=== PATIENT | male | born 1950 | race Caucasian/White ===

== ENCOUNTER 2020-04-15 13:45 | Day surgery (SDC) | payer MEDICARE ==
[~2020-04-15 13:45] MED LIST: DIPRIVAN 200 MG/20 ML IV ONE; Ketamine HCl 50 MG/ML ONE
[2020-04-15] MEDS ORDERED: Depo-Medrol 40 MG/ML IM ONE (13:46)
[2020-04-15] MEDS ORDERED: Sodium Chloride 0.9(Preservative Free) 10 ML IJ ONE (13:46)
[2020-04-15] MEDS ORDERED: Lactated Ringers 1,000 ML IV ONE (15:52)
--- NOTE | 2020-04-15 16:19 | XRAY ---
Indication: Right L3-L5 transforaminal HENRRY. Intraoperative fluoroscopy was provided for 29 seconds. 3 digital spot images submitted for interpretation demonstrates posterior needle tips projecting over the expected right L3 and L4 nerve roots. Small amount of contrast injected for needle tip placement. Correlate with intraoperative findings/report.
--- NOTE | 2020-04-15 16:29 | XRAY ---
29 seconds fluoroscopy time in surgery for right L3-L5 transforaminal HENRRY.
== END 2020-04-15 15:40 | disposition home or self-care (01) ==
LOC: SDC-PAIN 13:45
PROVIDERS: ATTEND Psychiatry & Neurology Pain Medicine
DX: M54.16 Radiculopathy, lumbar region (principal); I10 Essential (primary) hypertension; I71.4 Abdominal aortic aneurysm, without rupture; Z79.899 Other long term (current) drug therapy
CPT/HCPCS: 72100; 77003; J1030; J2704

== ENCOUNTER 2021-11-25 15:35 | Observation (INO) | payer MEDICARE ==
--- NOTE | 2021-11-25 15:52 | ERPHSYRPT ---
- History of Present Illness Time Seen by Provider: 11/25/21 15:52 Source: patient, family Exam Limitations: no limitations Physician History: This is a 71-year-old white male patient who is being treated with chemotherapy and radiation therapy for tx of static lung cancer and presents with weakness for the last 3 to 4 days. He has had associated decreased appetite and decreased oral intake. He is also complains of nausea and dry, itchy skin. We also notes to have a left foot fifth digit skin lesion. Patient denies chest pain. He denies shortness of breath. He has no abdominal pain. Timing/Duration: day(s) (3), worse Severity: moderate Associated Symptoms: nausea, weakness, No shortness of breath, No chest pain Allergies/Adverse Reactions: No Known Drug Allergies Allergy (Unverified 11/25/21 16:15) Travel Risk - International Travel Have you traveled outside of the country in past 3 weeks: No - Coronavirus Screening Are you exhibiting any of the following symptoms?: No Close contact with a COVID-19 positive Pt in past 14-21 Days: No - Review of Systems Constitutional: Weakness Eyes: No Symptoms Ears, Nose, & Throat: No Symptoms Respiratory: No Symptoms Cardiac: No Symptoms Abdominal/Gastrointestinal: Nausea, Appetite Changes Genitourinary Symptoms: No Symptoms Musculoskeletal: No Symptoms Skin: Pruritis, Dryness Neurological: No Symptoms Psychological: No Symptoms Endocrine: No Symptoms Hematologic/Lymphatic: No Symptoms Immunological/Allergic: No Symptoms All Other Systems: Reviewed and Negative - Past Medical History Pertinent Past Medical History: Yes - Past Surgical History Past Surgical History: Yes - Nursing Vital Signs Nursing Vital Signs: Initial Vital Signs Temperature 97.9 F 11/25/21 15:49 Pulse Rate 108 H 11/25/21 15:49 Respiratory Rate 18 11/25/21 15:49 Blood Pressure 93/67 11/25/21 15:49 O2 Sat by Pulse Oximetry 98 11/25/21 15:49 Pain Scale Pain Intensity 5 - Physical Exam General Appearance: mild distress, alert, anxiety, thin Eye Exam: PERRL/EOMI, eyes nml inspection Ears, Nose, Throat Exam: normal ENT inspection, moist mucous membranes Neck Exam: normal inspection, non-tender, supple, full range of motion Respiratory Exam: normal breath sounds, lungs clear, airway intact, No chest tenderness, No respiratory distress Cardiovascular Exam: tachycardia Gastrointestinal/Abdomen Exam: soft, normal bowel sounds, hernia (Umbilical, reducible), No tenderness Rectal Exam: not done Back Exam: normal inspection, normal range of motion, No CVA tenderness, No vertebral tenderness Extremity Exam: normal range of motion, pelvis stable, tenderness (Eschar left foot lateral fifth digit) Neurologic Exam: alert, oriented x 3, cooperative, mushroom cutter II-XII nml as tested, sensation nml Skin Exam: normal color, warm, dry Lymphatic Exam: No adenopathy SpO2 Interpretation: normal O2 Delivery: Room Air - Course Nursing assessment & vital signs reviewed: Yes EKG Interpreted by Me: RATE ([id number]), Sinus Tach, NORMAL AXIS, NORMAL INTERVALS, NORMAL QRS, NORMAL ST-T, Other (No acute ischemic changes.) Ordered Tests: Active Orders 24 hr Category Date Time Status Grid Maker STAT Care 11/25/21 16:09 Active EKG-ER Only STAT Care 11/25/21 16:09 Active IV Insertion STAT Care 11/25/21 16:09 Active Pulse Oximetry (ED) STAT Care 11/25/21 16:09 Active CBC W DIFF Stat Lab 11/25/21 16:30 Completed CMP Stat Lab 11/25/21 16:30 Completed CULTURE,URINE Stat Lab 11/25/21 19:00 Received CULTURE,WOUND Stat Lab 11/25/21 19:59 Received Lactic Acid Stat Lab 11/25/21 17:00 Completed MAGNESIUM Stat Lab 11/25/21 16:30 Completed NT PRO BNP Stat Lab 11/25/21 16:30 Completed TROPONIN Q3H Lab 11/25/21 16:30 Completed TROPONIN Q3H Lab 11/25/21 19:15 Completed TROPONIN Q3H Lab 11/25/21 22:15 Ordered TROPONIN Q3H Lab 11/26/21 01:15 Ordered TROPONIN Q3H Lab 11/26/21 04:15 Ordered UA W/RFX CULTURE Stat Lab 11/25/21 19:00 Completed Transfer Order Routine Transfer 11/25/21 Ordered Medication Summary Generic Name Dose Route Start Last Admin Trade Name Freq PRN Reason Stop Dose Admin Sodium Chloride 1,000 mls @ 250 mls/hr 11/25/21 20:15 Sodium Chloride 0.9% 1000 Ml IV 12/25/21 20:14 .Q4H [place] Discontinued Medications Generic Name Dose Route Start Last Admin Trade Name Freq PRN Reason Stop Dose Admin Amitriptyline HCl 25 mg 11/25/21 18:39 11/25/21 19:08 Amitriptyline Hcl 25 Mg Tablet PO 11/25/21 18:40 25 mg STAT ONE Administration Methylprednisolone Sodium 0 mg 11/25/21 18:38 11/25/21 19:10 Succinate 125 mg/ Sterile IV 11/25/21 18:39 125 mg Water 2 ml STAT ONE Administration Sodium Chloride 1,000 mls @ 999 mls/hr 11/25/21 16:09 11/25/21 18:15 Sodium Chloride 0.9% 1000 Ml IV 11/25/21 17:09 Infused .Q1H1M STA Infusion Sodium Chloride Confirm 11/25/21 16:22 Sodium Chloride 0.9% 1000 Ml Administered 11/25/21 16:23 Dose 1,000 mls @ ud .ROUTE .STK-MED ONE Sodium Chloride 1,000 mls @ 999 mls/hr 11/25/21 18:21 11/25/21 19:59 Sodium Chloride 0.9% 1000 Ml IV 11/25/21 19:21 Infused .Q1H1M STA Infusion Sodium Chloride Confirm 11/25/21 18:27 Sodium Chloride 0.9% 1000 Ml Administered 11/25/21 18:28 Dose 1,000 mls @ ud .ROUTE .STK-MED ONE Ceftriaxone Sodium/Dextrose 1 g in 50 mls @ 100 mls/hr 11/25/21 20:17 11/25/21 20:37 Rocephin 1 Gm-D5w 50 Ml Bag IV 11/25/21 20:46 100 ml/hr STAT STA 100 mls/hr Administration Ceftriaxone Sodium/Dextrose Confirm 11/25/21 20:36 Rocephin 1 Gm-D5w 50 Ml Bag Administered 11/25/21 20:37 Dose 1 g in 50 mls @ ud IV .STK-MED ONE Methylprednisolone Sodium Succinate Confirm 11/25/21 18:46 Methylprednis Sod Succ 125 Mg/2 Ml Vial Administered 11/25/21 18:47 Dose 125 mg .ROUTE .STK-MED ONE Sterile Water Confirm 11/25/21 18:46 Water For Injection,Sterile 10 Ml Vial Administered 11/25/21 18:47 Dose 10 ml IJ .STK-MED ONE Lab/Rad Data: Laboratory Result Diagrams 11/25/21 16:30 11/25/21 16:30 Laboratory Results 11/25/21 11/25/21 11/25/21 Range/Units 19:15 19:00 17:00 WBC (4.0-10.5) K/mm3 RBC (4.1-5.6) M/mm3 Hgb (12.5-18.0) gm/dl Hct (42-50) % MCV (78-100) fl MCH (26-32) pg MCHC (32-36) g/dl RDW (11.5-14.0) % Plt Count (150-450) K/mm3 MPV (7.5-11.0) fl Gran % (36.0-66.0) % Eos # (Auto) (0-0.5) Absolute Lymphs (auto) (1.0-4.6) Absolute Monos (auto) (0.0-1.3) Lymphocytes % (24.0-44.0) % Monocytes % (0.0-12.0) % Eosinophils % (0.00-5.0) % Basophils % (0.0-0.4) % Absolute Granulocytes (1.4-6.9) Basophils # (0-0.4) Sodium (137-145) mmol/L Potassium (3.5-5.1) mmol/L Chloride (98-107) mmol/L Carbon Dioxide (22-30) mmol/L Anion Gap (5-15) MEQ/L BUN (9-20) mg/dL Creatinine (0.66-1.25) mg/dL Estimated GFR ML/MIN Glucose (74-106) mg/dL Lactic Acid 1.3 (0.4-2.0) Calcium (8.4-10.2) mg/dL Magnesium (1.6-2.3) mg/dL Total Bilirubin (0.2-1.3) mg/dL AST (17-59) U/L ALT (0-50) U/L Alkaline Phosphatase (38-126) U/L Troponin I 0.033 (0.000-0.034) ng/mL NT-Pro-B Natriuret Pep (0-900) pg/mL Serum Total Protein (6.3-8.2) g/dL Albumin (3.5-5.0) g/dL Urinalys Dipstick Clnc MAIN LAB Urine Color RED (YELLOW) Urine Appearance TURBID (CLEAR) Urine pH 8.5 (5-6) Ur Specific [place] 1.010 (1.005-1.025) POC Urine Protein Conf >=300 (Negative) Urine Ketones MODERATE-40 (NEGATIVE) Urine Nitrite NEGATIVE (NEGATIVE) Urine Bilirubin LARGE (NEGATIVE) Urine Urobilinogen 4 (0-1) mg/dL Urine Leukocytes LARGE (NEGATIVE) Urine WBC (Auto) 16-25 (0-5) /HPF Urine RBC (Auto) >101 (0-2) /HPF Urine Bacteria (Auto) FEW (NEGATIVE) /HPF Urine RBC LARGE (0-5) Lester/ul Urine Mucus (Auto) SLIGHT (NEGATIVE) /HPF Ur Culture Indicated? YES Urine Glucose 100 (NEGATIVE) mg/dL 11/25/21 11/25/21 11/25/21 Range/Units 16:30 16:30 16:30 WBC 8.9 (4.0-10.5) K/mm3 RBC 4.57 (4.1-5.6) M/mm3 Hgb 10.6 L (12.5-18.0) gm/dl Hct 32.9 L (42-50) % MCV 72.0 L (78-100) fl MCH 23.2 L (26-32) pg MCHC 32.2 (32-36) g/dl RDW 19.1 H (11.5-14.0) % Plt Count 353 (150-450) K/mm3 MPV 10.0 (7.5-11.0) fl Gran % 74.3 H (36.0-66.0) % Eos # (Auto) 0.18 (0-0.5) Absolute Lymphs (auto) 1.13 (1.0-4.6) Absolute Monos (auto) 0.96 (0.0-1.3) Lymphocytes % 12.7 L (24.0-44.0) % Monocytes % 10.8 (0.0-12.0) % Eosinophils % 2.0 (0.00-5.0) % Basophils % 0.2 (0.0-0.4) % Absolute Granulocytes 6.62 (1.4-6.9) Basophils # 0.02 (0-0.4) Sodium 134 L (137-145) mmol/L Potassium 4.6 (3.5-5.1) mmol/L Chloride 104 (98-107) mmol/L Carbon Dioxide 22 (22-30) mmol/L Anion Gap 13.2 (5-15) MEQ/L BUN 15 (9-20) mg/dL Creatinine 0.79 (0.66-1.25) mg/dL Estimated GFR > 60.0 ML/MIN Glucose 93 (74-106) mg/dL Lactic Acid (0.4-2.0) Calcium 9.0 (8.4-10.2) mg/dL Magnesium 2.1 (1.6-2.3) mg/dL Total Bilirubin 0.70 (0.2-1.3) mg/dL AST 15 L (17-59) U/L ALT 5 (0-50) U/L Alkaline Phosphatase 102 (38-126) U/L Troponin I 0.035 H (0.000-0.034) ng/mL NT-Pro-B Natriuret Pep 429 (0-900) pg/mL Serum Total Protein 7.0 (6.3-8.2) g/dL Albumin 3.4 L (3.5-5.0) g/dL Urinalys Dipstick Clnc Urine Color (YELLOW) Urine Appearance (CLEAR) Urine pH (5-6) Ur Specific [place] (1.005-1.025) POC Urine Protein Conf (Negative) Urine Ketones (NEGATIVE) Urine Nitrite (NEGATIVE) Urine Bilirubin (NEGATIVE) Urine Urobilinogen (0-1) mg/dL Urine Leukocytes (NEGATIVE) Urine WBC (Auto) (0-5) /HPF Urine RBC (Auto) (0-2) /HPF Urine Bacteria (Auto) (NEGATIVE) /HPF Urine RBC (0-5) Lester/ul Urine Mucus (Auto) (NEGATIVE) /HPF Ur Culture Indicated? Urine Glucose (NEGATIVE) mg/dL - Progress Progress: improved, re-examined Progress Note: 11/25/21 20:51 Medical decision making: I spoke with Dr. Pabon and we will bring the patient in to the hospital under observation status to help reverse his dehydration and we will place him on intravenous antibiotics for urinary tract infection. We will repeat his labs in the morning Discussed with : Dhara Counseled pt/family regarding: lab results, diagnosis, need for follow-up, rad results - Departure Departure Disposition: Observation Clinical Impression: Dehydration, Hematuria, UTI (urinary tract infection), Weakness Condition: Fair Critical Care Time: No Referrals: BONNIE KIRKPATRICK [Primary Care Provider] - Follow up/PCP as directed
[2021-11-25] MEDS ORDERED: Sodium Chloride 0.9% 1000 ML 1,000 ML IV STA ×2 (16:09→18:21)
[2021-11-25] MEDS ORDERED: Sodium Chloride 0.9% 1000 ML 1,000 ML ONE ×3 (16:22→21:45)
[2021-11-25 16:47] LABS: Absolute Neutrophil Ct (ANC) 6.62 (1.4-6.9); Basophil (Absolute #) 0.02 (0-0.4); Eosinophil (Absolute #) 0.18 (0-0.5); Hematocrit 32.9 % (42-50); Hemoglobin 10.6 gm/dl (12.5-18.0); Lymphocyte (Absolute #) 1.13 (1.0-4.6); Lymphocytes % 12.7 % (24.0-44.0); Mean Corpuscular Hemoglobin 23.2 pg (26-32); Mean Corpuscular Hgb Concent. 32.2 g/dl (32-36); Monocyte (Absolute #) 0.96 (0.0-1.3); Monocytes % 10.8 % (0.0-12.0); Neutrophil % 74.3 % (36.0-66.0); Platelet Count 353 K/mm3 (150-450); Red Blood Count 4.57 M/mm3 (4.1-5.6); Red Cell Distribution Width 19.1 % (11.5-14.0); White Blood Count 8.9 K/mm3 (4.0-10.5)
[2021-11-25 17:00] LABS: ALBUMIN 3.4 g/dL (3.5-5.0); ALKALINE PHOSPHATASE 102 U/L (38-126); ANION GAP 13.2 MEQ/L (5-15); BLOOD UREA NITROGEN 15 mg/dL (9-20); CHLORIDE 104 mmol/L (98-107); Carbon Dioxide 22 mmol/L (22-30); Creatinine 1 0.79 mg/dL (0.66-1.25); EST GLOMERULAR FILTRATION RATE > 60.0 ML/MIN; Glucose 93 mg/dL (74-106); MAGNESIUM 2.1 mg/dL (1.6-2.3); NT PRO BNP 429 pg/mL (0-900); Potassium 4.6 mmol/L (3.5-5.1); SGOT/AST 15 U/L (17-59); SGPT/ALT 5 U/L (0-50); SODIUM 134 mmol/L (137-145)
[2021-11-25] MEDS ORDERED: solu-MEDROL 125 MG, Sterile H2O 10 ml 2 ML IV ONE ×2 (18:38)
[2021-11-25] MEDS ORDERED: AMITRIPTYLINE 25 MG TABLET PO ONE (18:39)
[2021-11-25] MEDS ORDERED: Sterile H2O 10 ml IJ ONE (18:46)
[2021-11-25] MEDS ORDERED: solu-MEDROL ONE (18:46)
[2021-11-25 20:15] LABS: Bacteria FEW /HPF (NEGATIVE); Mucus SLIGHT /HPF (NEGATIVE)
[2021-11-25] MEDS ORDERED: Sodium Chloride 0.9% 1000 ML 1,000 ML IV SCH (20:15)
[2021-11-25 20:16] LABS: Appearance TURBID (CLEAR); Glucose 100 mg/dL (NEGATIVE); RBC >101 /HPF (0-2)
[2021-11-25 20:17] LABS: Bilirubin LARGE (NEGATIVE); Ketones MODERATE-40 (NEGATIVE); Nitrite NEGATIVE (NEGATIVE); Ph 8.5 (5-6); Protein,Urine Dip >=300 (Negative); RBC LARGE Ery/ul (0-5); Urine Cultured Indicated? YES; Urobilinogen 4 mg/dL (0-1)
[2021-11-25] MEDS ORDERED: ROCEPHIN 1 Gm-D5w 50 ml Bag** 1 G/50 ML IVPB IV STA (20:17)
[2021-11-25 20:18] LABS: Dipstick done @ ? MAIN LAB
[2021-11-25] MEDS ORDERED: ROCEPHIN 1 Gm-D5w 50 ml Bag** 1 G/50 ML IVPB IV ONE (20:36)
[2021-11-25 21:13] LABS: INFLUENZA A NEGATIVE (NEGATIVE); INFLUENZA B NEGATIVE (NEGATIVE); RESPIRATORY SYNCTIAL VIRUS NEGATIVE (Negative); SARS-CoV-2 Xpert Express NEGATIVE (NEGATIVE)
[2021-11-25] MEDS ORDERED: NICODERM CQ 14 MG TOP SCH (21:15)
[2021-11-25] MEDS ORDERED: NICODERM CQ 14 MG ONE (21:45)
[2021-11-25] MEDS ORDERED: TYLENOL 325 MG PO PRN (22:02)
[2021-11-25] MEDS ORDERED: Zofran 4 MG/2 ML VIAL IV PRN (22:02)
[2021-11-25] MEDS ORDERED: AMITRIPTYLINE 25 MG TABLET PO SCH (22:02)
[2021-11-25] MEDS: Sodium Chloride 0.9% 1000 ML 1,000 ML IV SCH (22:20)
[2021-11-25] MEDS ORDERED: ATARAX 25 MG PO SCH (23:39)
[2021-11-26] MEDS: Sodium Chloride 0.9% 1000 ML 1,000 ML IV SCH (03:15)
[2021-11-26 04:54] LABS: Absolute Neutrophil Ct (ANC) 3.96 (1.4-6.9); Basophil (Absolute #) 0.01 (0-0.4); Eosinophil (Absolute #) 0 (0-0.5); Hematocrit 29.6 % (42-50); Hemoglobin 9.5 gm/dl (12.5-18.0); Lymphocyte (Absolute #) 0.45 (1.0-4.6); Lymphocytes % 10.1 % (24.0-44.0); Mean Cell Volume 72.4 fl (78-100); Mean Corpuscular Hemoglobin 23.2 pg (26-32); Mean Corpuscular Hgb Concent. 32.1 g/dl (32-36); Mean Platelet Volume 9.8 fl (7.5-11.0); Monocyte (Absolute #) 0.05 (0.0-1.3); Monocytes % 1.1 % (0.0-12.0); Neutrophil % 88.6 % (36.0-66.0); Platelet Count 295 K/mm3 (150-450); Red Blood Count 4.09 M/mm3 (4.1-5.6); White Blood Count 4.5 K/mm3 (4.0-10.5)
[2021-11-26 05:04] LABS: ALKALINE PHOSPHATASE 84 U/L (38-126); ANION GAP 12.2 MEQ/L (5-15); BLOOD UREA NITROGEN 13 mg/dL (9-20); CHLORIDE 107 mmol/L (98-107); Calcium 7.8 mg/dL (8.4-10.2); Carbon Dioxide 18 mmol/L (22-30); Creatinine 1 0.65 mg/dL (0.66-1.25); EST GLOMERULAR FILTRATION RATE > 60.0 ML/MIN; Glucose 122 mg/dL (74-106); Potassium 4.5 mmol/L (3.5-5.1); SGOT/AST 13 U/L (17-59); SODIUM 133 mmol/L (137-145); Total Protein 6.5 g/dL (6.3-8.2)
[2021-11-26 05:57] LABS: SGPT/ALT 4 U/L (0-50)
[2021-11-26 08:20] LABS: Slide Review 1 YES
[2021-11-26 08:21] VITALS: BP 132/70; PULSE 94; O2SAT 90
[2021-11-26] MEDS ORDERED: NORCO 5/325 MG PO PRN (09:02)
[2021-11-26] MEDS ORDERED: NON-FORMULARY ITEM (Apixaban*** [Eliquis 5 Mg Tablet***] 5 MG Tablet) PO SCH (10:00)
[2021-11-26] MEDS ORDERED: SYNTHROID 25 MCG PO SCH (10:00)
[2021-11-26] MEDS ORDERED: ELIQUIS 2.5 MG TABLET PO SCH (10:00)
[2021-11-26] MEDS ORDERED: SYNTHROID 50 MCG PO SCH (10:00)
[2021-11-26] MEDS ORDERED: Maxzide-25MG Tablet PO SCH (10:00)
[2021-11-26] MEDS ORDERED: ROCEPHIN 1 Gm-D5w 50 ml Bag** 1 G/50 ML IVPB IV SCH (22:00)
--- NOTE | 2021-12-03 21:01 | PCM.SSS ---
History of Present Illness - Chief Complaint Chief Complaint: UTi, dehydration, weakness Date: 11/26/21 History of Present Illness: is a 71 year old male. Pt. presented to ER with increased weakness and dry skin, upon evaluation pt. found to have a UTI causing some hematuria and dehydration. Pt. admitted for treatment of UTI and rehydration. - Review of Systems Constitutional: Weakness, No Fever, No Chills Eyes: No Symptoms Ears, Nose, & Throat: No Symptoms Respiratory: No Cough, No Short Of Breath Cardiac: No Chest Pain, No Edema, No Syncope Abdominal/Gastrointestinal: No Abdominal Pain, No Nausea, No Vomiting, No Diarrhea Genitourinary Symptoms: No Dysuria Musculoskeletal: No Back Pain, No Neck Pain Skin: Dryness, No Rash Neurological: No Dizziness, No Focal Weakness, No Sensory Changes Psychological: No Symptoms Endocrine: No Symptoms Hematologic/Lymphatic: No Symptoms Immunological/Allergic: No Symptoms Medications & Allergies Home Medications: Home Medication List Apixaban [Eliquis 5 mg Tablet] 5 mg PO BID 11/25/21 [History Confirmed 11/25/21] Hydrocodone/Acetaminophen [Hydrocodone-Acetamin 5-325 mg] 5 - 325 mg PO Q6H P RN PRN 11/25/21 [History Confirmed 11/25/21] Levothyroxine Sodium 25 Mcg [Synthroid 25 Mcg] 25 mcg PO DAILY 11/25/21 [History Confirmed 11/25/21] Levothyroxine Sodium 50 Mcg [Synthroid 50 Mcg] 50 mcg PO DAILY 11/25/21 [History Confirmed 11/25/21] Triamterene/Hydrochlorothiazid [Triamterene-Hctz 37.5-25 mg Tb] 1 each PO DAILY 11/25/21 [History Confirmed 11/25/21] Amitriptyline HCl 25 mg [Amitriptyline 25 mg Tablet] 25 mg PO BID PRN 15 Days #30 tablet 11/26/21 [Rx] Cephalexin Mh 500 mg [Keflex 500 mg] 500 mg PO TID 5 Days #15 cap 11/26/21 [Rx] Petrolatum,White [Aquaphor] 396 gm TP TID PRN #3 11/26/21 [Rx] Prednisone 20 mg [Deltasone 20 mg] 20 mg PO DAILY 5 Days #5 tablet 11/26/21 [Rx] Allergies/Adverse Reactions: Allergies Allergy/AdvReac Type Severity Reaction Status Date / Time No Known Drug Allergies Allergy Unverified 11/25/21 16:15 - Past Medical History Past Medical History: Yes Neurological History: No Pertinent History ENT History: No Pertinent History Cardiac History: No Pertinent History Respiratory History: Lung Cancer Endocrine Medical History: Hyperthyroidism Musculoskelatal History: No Pertinent History GI Medical History: No Pertinent History History: No Pertinent History Pyscho-Social History: No Pertinent History Male Reproductive Disorders: No Pertinent History Comment: lung cancer, metastesis - Past Surgical History Past Surgical History: Yes Neuro Surgical History: No Pertinent History Cardiac History: No Pertinent History Respiratory Surgery: No Pertinent History GI Surgical History: Hernia Repair Genitourinary Surgical Hx: No Pertinent History Musculskeletal Surgical Hx: Orthopedic Surgery Male Surgical History: No Pertinent History Other Surgical History: rotator cuff, rt ankle - Social History Smoking Status: Former smoker How long have you smoked: 15 Alcohol: None Drug Use: none - Physical Exam General Appearance: no apparent distress, alert Neurologic Exam: alert, oriented x 3, cooperative, normal mood/affect, nml cerebellar function, sensation nml, No motor deficits Eye Exam: PERRL/EOMI, eyes nml inspection Ears, Nose, Throat Exam: normal ENT inspection, pharynx normal, moist mucous membranes Neck Exam: normal inspection, non-tender, supple, full range of motion Respiratory Exam: normal breath sounds, lungs clear, No respiratory distress Cardiovascular Exam: regular rate/rhythm, normal heart sounds, normal peripheral pulses Gastrointestinal/Abdomen Exam: soft, normal bowel sounds, No tenderness, No mass Back Exam: normal inspection, normal range of motion, No CVA tenderness, No vertebral tenderness Extremity Exam: normal inspection, normal range of motion, pelvis stable Skin Exam: normal color, warm, dry, No rash Lymphatic Exam: No adenopathy Results - Labs Lab/Micro Results: Microbiology 11/25/21 19:59 Wound Culture - Final Foot - Left Staphylococcus Caprae 11/25/21 19:00 Urine Culture - Final Clean Catch Midstream NO GROWTH Assessment/Plan (1) Dehydration Status: Acute Code(s): E86.0 - DEHYDRATION (2) Hematuria Status: Acute Code(s): R31.9 - HEMATURIA, UNSPECIFIED (3) UTI (urinary tract infection) Status: Acute Code(s): N39.0 - URINARY TRACT INFECTION, SITE NOT SPECIFIED Hospital Summary - Hospital Course Hospital Course: Pt. admitted and started on iv antibiotics, and iv hydration. Pt. feeling much better the following am and was ready for continued op treatment upon discharge. - Vitals & Intake/Output Vital Signs: Vital Signs Temperature 97.1 F 11/26/21 08:00 Pulse Rate 94 H 11/26/21 08:00 Respiratory Rate 20 11/26/21 08:00 Blood Pressure 132/70 11/26/21 08:00 O2 Sat by Pulse Oximetry 90 L 11/26/21 08:00 - Lab Result Diagrams: 11/26/21 04:10 11/26/21 04:10 Micro Results-Entire Visit: Microbiology 11/25/21 19:59 Wound Culture - Final Foot - Left Staphylococcus Caprae 11/25/21 19:00 Urine Culture - Final Clean Catch Midstream NO GROWTH - Procedures and Test Procedures and Tests throughout Hospitalization: Therapy Orders & Screens 11/25/21 22:02 EKG REPEAT IN AM Comment: 11/25/21 23:24 OT Screen per Nursing Assess ONCE Comment: Protocol Order Physician Instructions: Greater than 3 points order OT Admission Screening Reason For Exam: Triggered on Admission Diagnosis: UTi, dehydration, weakness Open Wound/Cellutlitis/Pressure Ulcers: Yes Acute Fx/ORIF/Change in wt bearing status: No Severe MUSCULOSKELETAL pain: No ADL Dysfunction: No Acute CVA w/Hemiparesis/Hemiplegia: No Decreased Functional Mobility/Strength: No Sprain/Strain: No Acute Post-op Mobility Dysfunction: No Total Points: 5 PT Screen per Nursing Assess ONCE Comment: Protocol Order Physician Instructions: Greater than 3 points order PT Admission Screenin Reason For Exam: Triggered on Admission Diagnosis: UTi, dehydration, weakness Open Wound/Cellutlitis/Pressure Ulcers: Yes Acute Fx/ORIF/Change in wt bearing status: No Severe MUSCULOSKELETAL pain: No ADL Dysfunction: No Acute CVA w/Hemiparesis/Hemiplegia: No Decreased Functional Mobility/Strength: No Sprain/Strain: No Acute Post-op Mobility Dysfunction: No Total Points: 5 - Discharge Discharge Date: 11/26/21 Disposition: Home, Self-Care Condition: Fair Prescriptions: New Amitriptyline HCl 25 mg [Amitriptyline 25 mg Tablet] 25 mg PO BID PRN 15 Days #30 tablet PRN Reason: Itching Petrolatum,White [Aquaphor] 396 gm TP TID PRN #3 PRN Reason: Itching Prednisone 20 mg [Deltasone 20 mg] 20 mg PO DAILY 5 Days #5 tablet Cephalexin Mh 500 mg [Keflex 500 mg] 500 mg PO TID 5 Days #15 cap Continue Levothyroxine Sodium 50 Mcg [Synthroid 50 Mcg] 50 mcg PO DAILY Levothyroxine Sodium 25 Mcg [Synthroid 25 Mcg] 25 mcg PO DAILY Triamterene/Hydrochlorothiazid [Triamterene-Hctz 37.5-25 mg Tb] 1 each PO DAILY Apixaban [Eliquis 5 mg Tablet] 5 mg PO BID Hydrocodone/Acetaminophen [Hydrocodone-Acetamin 5-325 mg] 5 - 325 mg PO Q6H PRN PRN PRN Reason: Pain Discontinued Hydroxyzine HCl 25 mg [Atarax 25 mg] 50 mg PO BID Instructions: Preventing Falls in the Older Adult, Dehydration, Adult (DC), Urinary Tract Infection, Adult (DC) Follow up with: BONNIE KIRKPATRICK [Primary Care Provider] - 12/03/21 10:45 am
== END 2021-11-26 09:31 | disposition home or self-care (01) ==
LOC: ED 15:35 → MED SURG 22:01
PROVIDERS: ADMIT Family Medicine; ATTEND Family Medicine
DX: E86.0 Dehydration (principal); N39.0 Urinary tract infection, site not specified; C34.90 Malignant neoplasm of unspecified part of unspecified bronchus or lung; R53.1 Weakness; R31.9 Hematuria, unspecified; L98.9 Disorder of the skin and subcutaneous tissue, unspecified; Z79.899 Other long term (current) drug therapy; Z20.828 Contact with and (suspected) exposure to other viral communicable diseases
CPT/HCPCS: 0241U; 36415; 80053; 81015; 83605; 83735; 83880; 84484; 85025; 87070; 87077; 87086; 93005; 93041; 94760; 96360; 96361; 96365; 96374; 99285; G0378; 96375; J0696; J2930; A9270-GY